=== PATIENT | male | born 1990 | race Caucasian/White ===

== ENCOUNTER 2018-09-22 15:03 | Emergency (ER) | payer OTHER ==
[~2018-09-22] VITALS: Ht 175.3 cm; Wt 111.1 kg
--- NOTE | 2018-09-22 15:18 | NUR ---
BILATERAL EYE SWELLING AND DRAINAGE NOTED. NO OBVIOUS SIGNS OF RESP DISTRESS.
[2018-09-22] MEDS ORDERED: PRD20T PO (15:35)
--- NOTE | 2018-09-22 15:36 | ED General ---
General Chief Complaint: Cough/Cold/Flu Symptoms Stated Complaint: ALLERGIES,SWOLLEN THROAT Nursing Triage Note: PT STATES HE RECENTLY MOVED HERE AND HAS HAD ISSUES WITH SEASONAL LIKE ALLERGIES. PT STATES HE WAS SEEN AT URGENT CARE AND GIVEN ZYRTEC AND AFFRIN. PT DENIES N/V/D/FEVER. PT STATES HE HAS ALLERGY INDUCED ASTHMA. Nursing Sepsis Screen: No Definite Risk Source of Information: Patient Exam Limitations: No Limitations History of Present Illness Date Seen by Provider: September 22, 2018 Time Seen by Provider: 15:33 Initial Comments 28 year old male who presents to the emergency room with complains of Nasal congestion, swollen eyes, runny nose. cough, after recently relocation to the area for work. He is from [place]. Currently on OTC meds with mild relief. Timing/Duration: 1 Week Associated Systoms: Denies Symptoms Allergies and Home Medications Allergies Coded Allergies: No Known Drug Allergies (Unverified , 09/22/18) Home Medications Prednisone 20 Mg Tab, 40 MG PO DAILY Prescribed by: MACRINA CUMMINGS on 09/22/18 [id number] Patient Home Medication List Home Medication List Reviewed: Yes Review of Systems Review of Systems Constitutional: see HPI; No chills, No fever EENTM: see HPI, tearing, nose congestion All Other Systems Reviewed Negative Unless Noted: Yes Past [id number]-[id number] Hx Past Med/Social Hx: Reviewed Nursing Past Med/Soc Hx Patient Social History Alcohol Use: Occasionally Uses Recreational Drug Use: No Smoking Status: Current Everyday Smoker Recent Foreign Travel: No Contact w/Someone Who Travel: No Recent Infectious Disease Expo: No Recent Hopitalizations: No Physical Abuse: No Sexual Abuse: No Mistreated: No Fear: No Seasonal Allergies Seasonal Allergies: Yes Past Medical History Surgeries: No Respiratory: No Cardiac: No Neurological: No Genitourinary: No Gastrointestinal: No Musculoskeletal: No Endocrine: No HEENT: No Cancer: No Psychosocial: No Integumentary: No Family Medical History Reviewed Nursing Family Hx Physical Exam Vital Signs Vital Signs - First Documented 09/22/18 15:13 Temp 97.6 Pulse 95 Resp 18 B/P (MAP) 147/99 (115) Pulse Ox 95 O2 Delivery Room Air Capillary Refill : Less Than 3 Seconds Height, Weight, BMI Height: 5'9.00" Weight: 245lbs. oz. [id number]; BMI Method:Stated General Appearance: No Apparent Distress, WD/WN Eyes: Bilateral Eye PERRL, Bilateral Eye EOMI, Bilateral Eye Lid Inflammation HEENT: PERRL/EOMI, TMs Normal, Normal ENT Inspection, Pharynx Normal Respiratory: Chest Non Tender, Lungs Clear, Normal Breath Sounds, No Accessory Muscle Use, No Respiratory Distress Cardiovascular: Regular Rate, Rhythm, No Edema, No Gallop, No JVD, No Murmur, Normal Peripheral Pulses Neurologic/Psychiatric: Alert, Oriented x3, Normal Mood/Affect Skin: Normal Color, Warm/Dry Progress/Results/Core Measures Suspected Sepsis Recent Fever Within 48 Hours: No Infection Criteria Present: None New/Unexplained Altered Menta: No Sepsis Screen: No Definite Risk SIRS Temperature:97.6 Pulse: 95 Respiratory Rate: 18 Blood Pressure 147 /99 Mean: 115 Results/Orders My Orders Orders - MACRINA CUMMINGS Im/Sub-Q Injection Non-Ab Ed (09/22/18 ) Vital Signs/I&O Capillary Refill : Less Than 3 Seconds Blood Pressure Mean: 115 Departure Impression Primary Impression: Seasonal allergies Disposition: 01 HOME, SELF-CARE Condition: Stable/Unchanged Departure-Patient Inst. Decision time for Depature: 15:34 Referrals: NO,LOCAL PHYSICIAN (PCP/Family) Primary Care Physician Patient Instructions: Seasonal Allergies in Adults Add. Discharge Instructions: Continue your previously prescribed medications as directed. Take prednisone daily for the next 3 days. Return back to the emergency room for worsening symptoms or concerns as needed. All discharge instructions reviewed with patient and/or family. Voiced understanding. Scripts Prednisone (Prednisone) 20 Mg Tab 40 MG PO DAILY for 3 Days, #6 TAB 0 Refills Prov: MACRINA CUMMINGS 09/22/18 MACRINA CUMMINGS September 22, 2018 15:35
[2018-09-22] MEDS ORDERED: DEXAMETHASONE 10 MG/ML (DECADRON) 1 ML VIAL IM ONE (15:45)
[2018-09-22 15:52] VITALS: BP 147/99
== END 2018-09-22 15:54 | disposition home or self-care (01) ==
LOC: ER 15:05
DX: J30.2 Other seasonal allergic rhinitis (principal); F17.200 Nicotine dependence, unspecified, uncomplicated; Z79.52 Long term (current) use of systemic steroids
CPT/HCPCS: 87430; 96372; 99285